=== PATIENT | male | born 1960 | race Caucasian/White ===

== ENCOUNTER 2023-06-13 06:25 | Outpatient (RCR) | payer MEDICARE, OTHER, SELFPAY | END 2023-06-13 23:59 | disposition home or self-care (01) | LOC: RPT 06:25 | PROVIDERS: ATTENDING PHYSICIAN Physician Assistant; FAMILY PHYSICIAN Family Medicine | DX: C71.9 Malignant neoplasm of brain, unspecified (principal); G81.91 Hemiplegia, unspecified affecting right dominant side; R26.81 Unsteadiness on feet; Z91.81 History of falling; G40.909 Epilepsy, unspecified, not intractable, without status epilepticus | CPT/HCPCS: 92523; 97163 ==

== ENCOUNTER 2023-07-18 06:42 | Outpatient (RCR) | payer MEDICARE, OTHER, SELFPAY | END 2023-07-18 23:59 | disposition home or self-care (01) | LOC: RPT 06:42 | PROVIDERS: ATTENDING PHYSICIAN Physician Assistant; FAMILY PHYSICIAN Family Medicine | DX: C71.9 Malignant neoplasm of brain, unspecified (principal); G40.909 Epilepsy, unspecified, not intractable, without status epilepticus; R47.01 Aphasia; G81.91 Hemiplegia, unspecified affecting right dominant side; R26.81 Unsteadiness on feet; Z73.6 Limitation of activities due to disability | CPT/HCPCS: 92507; 97110; 97112; 97530; 97760 ==

== ENCOUNTER 2023-08-15 06:16 | Outpatient (RCR) | payer MEDICARE, OTHER, SELFPAY | END 2023-08-15 23:59 | disposition home or self-care (01) | LOC: RPT 06:16 | PROVIDERS: ATTENDING PHYSICIAN Physician Assistant; FAMILY PHYSICIAN Family Medicine | DX: G40.909 Epilepsy, unspecified, not intractable, without status epilepticus (principal); R26.81 Unsteadiness on feet; G81.91 Hemiplegia, unspecified affecting right dominant side; C71.9 Malignant neoplasm of brain, unspecified; Z73.6 Limitation of activities due to disability | CPT/HCPCS: 92507; 97110; 97112; 97116; 97530 ==

== ENCOUNTER 2023-08-22 07:12 | Outpatient (RCR) | payer MEDICARE, OTHER, SELFPAY | END 2023-08-22 10:13 | disposition home or self-care (01) | LOC: RPT 07:12 | PROVIDERS: ATTENDING PHYSICIAN Physician Assistant; FAMILY PHYSICIAN Family Medicine | DX: C71.9 Malignant neoplasm of brain, unspecified (principal); G81.91 Hemiplegia, unspecified affecting right dominant side; R26.81 Unsteadiness on feet; G40.909 Epilepsy, unspecified, not intractable, without status epilepticus; Z73.6 Limitation of activities due to disability; Z91.81 History of falling | CPT/HCPCS: 92507; 97110; 97112; 97116 ==

== ENCOUNTER → 2023-10-09 12:19 | Outpatient (REF) | payer MEDICARE, OTHER, SELFPAY | LOC: PAVMRI 12:19 | PROVIDERS: ATTENDING PHYSICIAN Psychiatry & Neurology Neurology; FAMILY PHYSICIAN Family Medicine | DX: G91.1 Obstructive hydrocephalus (principal) | CPT/HCPCS: 70250; 70553; A9575 ==

== ENCOUNTER → 2024-01-29 09:28 | Outpatient (REF) | payer MEDICARE, OTHER, SELFPAY | LOC: RAD 09:28 | PROVIDERS: ATTENDING PHYSICIAN Psychiatry & Neurology Neurology | DX: C71.9 Malignant neoplasm of brain, unspecified (principal) | CPT/HCPCS: 70250 ==

== ENCOUNTER → 2024-01-29 10:01 | Outpatient (REF) | payer MEDICARE, OTHER, SELFPAY | LOC: MRI 10:01 | PROVIDERS: ATTENDING PHYSICIAN Psychiatry & Neurology Neurology; FAMILY PHYSICIAN Family Medicine | DX: C71.9 Malignant neoplasm of brain, unspecified (principal) | CPT/HCPCS: 70250; 70553; A9575 ==

== ENCOUNTER → 2024-08-19 07:49 | Outpatient (REF) | payer MEDICARE, OTHER, SELFPAY | LOC: PAVMRI 07:49 | PROVIDERS: ATTENDING PHYSICIAN Psychiatry & Neurology Neurology; FAMILY PHYSICIAN Family Medicine | DX: C71.9 Malignant neoplasm of brain, unspecified (principal) | CPT/HCPCS: 70250; 70553; A9575 ==

== ENCOUNTER → 2025-04-28 08:49 | Outpatient (REF) | payer MEDICARE, OTHER, SELFPAY | LOC: MRI 08:49 | PROVIDERS: ATTENDING PHYSICIAN Psychiatry & Neurology Neurology; FAMILY PHYSICIAN Physician Assistant | DX: C71.9 Malignant neoplasm of brain, unspecified (principal) | CPT/HCPCS: 70250; 70553; A9575 ==